=== PATIENT | female | born 1990 | race Caucasian/White ===

== ENCOUNTER 2024-04-04 18:33 | Emergency (ER) | payer BC ==
[~2024-04-04] VITALS: Ht 167.6 cm; Wt 70.3 kg
[2024-04-04 19:05] VITALS: BP 131/92; TEMP 98.2; O2SAT 98
== END 2024-04-04 19:45 | disposition home or self-care (01) ==
LOC: ER 18:38
DX: S61.213A Laceration without foreign body of left middle finger without damage to nail, initial encounter (principal); W45.8XXA Other foreign body or object entering through skin, initial encounter; Y93.89 Activity, other specified; Y92.89 Other specified places as the place of occurrence of the external cause; Y99.8 Other external cause status